=== PATIENT | male | born 1985 | race Caucasian/White ===

== ENCOUNTER → 2021-01-09 | Outpatient (CLI) | payer OTHER | END | disposition home or self-care (01) | LOC: RAD 09:34 | PROVIDERS: ATTEND Family Medicine | DX: M47.816 Spondylosis without myelopathy or radiculopathy, lumbar region (principal) ==

== ENCOUNTER → 2021-06-19 | Outpatient (CLI) | payer OTHER | END | disposition home or self-care (01) | LOC: MRI 13:00 | PROVIDERS: ATTEND Family Medicine | DX: S12.8XXS Fracture of other parts of neck, sequela (principal); M47.892 Other spondylosis, cervical region; X58.XXXS Exposure to other specified factors, sequela ==

== ENCOUNTER 2025-03-11 18:08 | Emergency (ER) | payer OTHER ==
[~2025-03-11] VITALS: Ht 187.9 cm; Wt 86.2 kg
[2025-03-11] MEDS ORDERED: Bacitracin Zinc 14 GM TUBE T ONE (19:10)
[2025-03-11] MEDS ORDERED: Lidocaine Hydrochloride 2% 10 ML AMP SC ONE (19:10)
[2025-03-11] MEDS ORDERED: CEPHALEXIN 500 MG CAP PO ONE (19:10)
[2025-03-11] MEDS ORDERED: Tdap Vaccine 0.5 ML SYR (Adult Vaccine) IM ONE (19:10)
[2025-03-11] MEDS ORDERED: CEPHALEXIN500 M1 PO (19:36)
== END 2025-03-11 19:45 | disposition home or self-care (01) ==
LOC: ED 18:08
DX: S61.412A Laceration without foreign body of left hand, initial encounter (principal); W45.8XXA Other foreign body or object entering through skin, initial encounter; Y93.89 Activity, other specified; Y92.89 Other specified places as the place of occurrence of the external cause; Y99.8 Other external cause status